=== PATIENT | female | born 1980 | race Two or more races ===

== ENCOUNTER 2024-06-26 10:02 | Emergency (ER) | payer BC ==
[~2024-06-26] VITALS: Ht 154.9 cm; Wt 75.7 kg
[2024-06-26] MEDS ORDERED: ACETAMINOPHEN ES 500 MG TABLET ONE (11:02)
[2024-06-26] MEDS ORDERED: MECLIZINE HCL 25 MG TABLET ONE (11:02)
[2024-06-26] MEDS ORDERED: METOCLOPRAMIDE HCL 10 MG/2 ML VIAL ONE (11:02)
[2024-06-26 11:06] LABS: EOSINOPHILS # (AUTO) 0.1 K/uL (0.0-0.7); EOSINOPHILS % (AUTO) 2.9 % (0.0-6.0); HEMATOCRIT 32 % (33-45); LYMPHOCYTES # (AUTO) 1.3 K/uL (0.8-4.8); LYMPHOCYTES % (AUTO) 29.7 % (20.0-44.0); MEAN CORPUSCULAR HEMOGLOBIN 23 PG (26.0-33.0); MEAN CORPUSCULAR HGB CONC 31 g/dl (31.0-36.0); MEAN CORPUSCULAR VOLUME 75 fL (82-100); MONOCYTES # (AUTO) 0.5 K/uL (0.1-1.30); NEUTROPHILS # (AUTO) 2.4 K/uL (1.8-8.9); NEUTROPHILS % (AUTO) 55.4 % (43.0-81.0); PLATELET COUNT (AUTO) 353 K/uL (150-450); RED CELL DISTRIBUTION WIDTH 18.5 % (11.5-15.0); WHITE BLOOD COUNT (AUTO) 4.3 K/uL (4.3-11.0)
[2024-06-26] MEDS: IV NS 0.9% 1,000 ML BAG IV ONE (11:14)
[2024-06-26 11:15] LABS: CALCIUM, SERUM 8.8 mg/dL (8.5-10.1); CREATININE 0.6 mg/dL (0.6-1.3); POTASSIUM 3.9 mmol/L (3.5-5.1)
[2024-06-26] MEDS: METOCLOPRAMIDE HCL 10 MG/2 ML VIAL IV ONE (11:16)
[2024-06-26] MEDS: ACETAMINOPHEN ES 500 MG TABLET PO ONE (11:18)
[2024-06-26] MEDS: MECLIZINE HCL 12.5 MG TABLET PO ONE (11:18)
[2024-06-26 11:21] LABS: ALBUMIN 3.5 g/dL (3.4-5.0); BILIRUBIN,DIRECT 0.2 mg/dL (0.0-0.2); BILIRUBIN,TOTAL 0.8 mg/dL (0.2-1.0); TOTAL PROTEIN, SERUM 7.3 g/dL (6.4-8.2)
[2024-06-26] MEDS ORDERED: MECL-159 PO (11:54)
[2024-06-26 12:26] VITALS: BP 120/84; TEMP 97.6; O2SAT 100
== END 2024-06-26 12:27 | disposition home or self-care (01) ==
LOC: ER 10:02
DX: R42 Dizziness and giddiness (principal); R55 Syncope and collapse
CPT/HCPCS: 99284; 96374; 96361; 93005 ×3; 85025; 80048; 83690; 80076; 36415; J8597; J2765; J7030